=== PATIENT | male | born 1995 | race Caucasian/White ===

== ENCOUNTER 2016-08-11 10:11 | Emergency (ER) | payer OTHER ==
[~2016-08-11] VITALS: Ht 170.2 cm; Wt 47.0 kg
[2016-08-11 10:15] VITALS: BP 142/92
[2016-08-11] MEDS ORDERED: DIPH,PERTUSS(ACELL),TET VAC/PF 0.5 ML IM-VACC ONE ×2 (10:30→10:36)
[2016-08-11] MEDS ORDERED: HYDROcodone/APAP 5/325 TABLET ONE (10:36)
[2016-08-11] MEDS ORDERED: BACITRACIN ZINC OINT 500U/GM, 0.9 GM ONE (10:54)
[2016-08-11] MEDS ORDERED: HYDROcodone/APAP 5/325 TABLET PO PRN (11:00)
== END 2016-08-11 11:14 | disposition home or self-care (01) ==
LOC: ED 11:08
DX: S90.32XA Contusion of left foot, initial encounter (principal); W31.89XA Contact with other specified machinery, initial encounter; Y93.89 Activity, other specified; Y92.89 Other specified places as the place of occurrence of the external cause; Y99.8 Other external cause status
CPT/HCPCS: 90471; 90715